=== PATIENT | male | born 1980 | race Caucasian/White ===

== ENCOUNTER 2018-03-12 18:50 | Emergency (ER) | payer OTHER ==
[2018-03-12 19:12] VITALS: BP 134/83
[2018-03-12] MEDS ORDERED: Tetan/Diph/Pertus SYR(Tdap)* 0.5 ML SYR(BOOSTRIX) use SYR IM ONE (19:30)
--- NOTE | 2018-03-12 19:58 | UC ---
Skin Complaint HPI - HPI Summary HPI Summary: Patient cut hand on a peice of glass at work. unk tetanus, 1 cm cut on top of the right thrid PIP joint. bleeding is well controlled. - History of Current Complaint Chief Complaint: UCLaceration Time Seen by Provider: 03/12/18 19:29 Stated Complaint: R M FINGER LAC WC Hx Obtained From: Patient Onset/Duration: Sudden Onset Skin Exposure Onset/Duration: Minutes Ago Timing: Constant Onset Severity: Mild Current Severity: Mild Pain Intensity: 5 Aggravating Factor(s): Touch Alleviating Factor(s): Nothing - Allergy/Home Medications Allergies/Adverse Reactions: Allergies Allergy/AdvReac Type Severity Reaction Status Date / Time No Known Allergies Allergy Verified 03/12/18 19:12 Home Medications: Home Medications NK [No Home Medications Reported] 03/12/18 [History Confirmed 03/12/18] Review of Systems Constitutional: Negative Skin: Other - 1 cm cut Eyes: Negative ENT: Negative Respiratory: Negative Cardiovascular: Negative Gastrointestinal: Negative Genitourinary: Negative Motor: Negative Neurovascular: Negative Musculoskeletal: Negative Neurological: Negative Psychological: Negative Is Patient Immunocompromised?: No All Other Systems Reviewed And Are Negative: Yes PMH/Surg Hx/FS Hx/Imm Hx Previously Healthy: No - Surgical History Surgical History: None Surgery Procedure, Year, and Place: denies - Family History Known Family History: Positive: Hypertension - Social History Alcohol Use: Occasionally Substance Use Type: Marijuana Smoking Status (MU): Light Every Day Tobacco Smoker Physical Exam Triage Information Reviewed: Yes Appearance: Well-Appearing, Well-Nourished, Pain Distress Vital Signs: Initial Vital Signs Temp 97.6 F 03/12/18 19:07 Pulse 101 03/12/18 19:07 Resp 16 03/12/18 19:07 BP 134/83 03/12/18 19:07 Pulse Ox 96 03/12/18 19:07 Vital Signs Reviewed: Yes Eye Exam: Normal ENT Exam: Normal Dental Exam: Normal Neck exam: Normal Respiratory Exam: Normal Cardiovascular Exam: Normal Abdominal Exam: Normal Musculoskeletal Exam: Normal Neurological Exam: Normal Psychological Exam: Normal Skin: Positive: significant lesion(s) - 1 cm superficial lac over right mid PIP Course/Dx - Course Course Of Treatment: hx obtained, exam performed, meds reviewed, lac cleaned and glued, tetanus given - Differential Diagnoses - Skin Complaint Differential Diagnoses: Other - laceration - Diagnoses Provider Diagnoses: 1 cm laceration to middle right PIP joint Discharge - Sign-Out/Discharge Documenting (check all that apply): Patient Departure - Discharge Plan Condition: Stable Disposition: HOME Patient Education Materials: Laceration (DC) Referrals: No Primary Care Phys,NOPCP [Primary Care Provider] - Additional Instructions: 1. keep clean and dry, use the splint for the next 2 days. 2. follow up with signs of infection, redness, swelling, fever. 3. you can continue to work. - Billing Disposition and Condition Condition: STABLE Disposition: Home
== END 2018-03-12 20:08 | disposition home or self-care (01) ==
LOC: UCEAST 18:50
DX: S61.212A Laceration without foreign body of right middle finger without damage to nail, initial encounter (principal); F17.200 Nicotine dependence, unspecified, uncomplicated; W25.XXXA Contact with sharp glass, initial encounter; Y92.9 Unspecified place or not applicable
CPT/HCPCS: 12001; 90715; 99201; G0463